=== PATIENT | male | born 1945 | race Hispanic/Latino ===

== ENCOUNTER 2023-02-12 08:01 | Day surgery (SDC) | payer OTHER ==
[2023-02-11 09:26] VITALS: BMI 34.7
[2023-02-12] MEDS ORDERED: KETAMINE 100 MG/ML (5ML VIAL) ONE (09:18)
[2023-02-12] MEDS ORDERED: PHENYLEPHRINE-NS 100 MCG/ML 10 ML SYRINGE ONE (09:22)
[2023-02-12] MEDS ORDERED: Midazolam HCl 2 mg/2 ml Vial ONE (09:22)
[2023-02-12] MEDS ORDERED: EPINEPHrine 1 MG/10 ML Abboject SYRINGE ONE (09:22)
[2023-02-12] MEDS ORDERED: PROPOFOL 20 ML ONE (09:23)
[2023-02-12] MEDS ORDERED: Oxymetazoline HCl 0.05% ( 15 ML ) ONE (09:24)
[2023-02-12] MEDS ORDERED: Propofol 1,000 MG/100 ML VIAL IV ONE (09:25)
[2023-02-12] MEDS ORDERED: Esmolol 100 MG/10 ML VIAL ONE (09:48)
[2023-02-12] MEDS ORDERED: Labetalol HCl 100 MG/20 ML VIAL ONE (09:48)
[2023-02-12] MEDS ORDERED: Acetaminophen 650 MG/20.3 ML UDCUP ONE (11:22)
[2023-02-12] MEDS ORDERED: Acetaminophen 650 MG/20.3 ML UDCUP PO SCH (11:30)
== END 2023-02-12 11:55 | disposition home or self-care (01) ==
LOC: CSHSDC 08:01
PROVIDERS: ATTEND Otolaryngology Otolaryngic Allergy
PROC: 0CBV8ZX Excision of Left Vocal Cord, Via Natural or Artificial Opening Endoscopic, Diagnostic (ICD-10-PCS; principal; 2023-02-12)
DX: C32.0 Malignant neoplasm of glottis (principal); J38.3 Other diseases of vocal cords; R49.0 Dysphonia; H90.3 Sensorineural hearing loss, bilateral; E11.9 Type 2 diabetes mellitus without complications; Z87.891 Personal history of nicotine dependence; Z88.5 Allergy status to narcotic agent; Z79.4 Long term (current) use of insulin; Z79.84 Long term (current) use of oral hypoglycemic drugs
CPT/HCPCS: 88305; 88342; J0171; J2250; J2704